=== PATIENT | male | born 1935 | race Caucasian/White ===

== ENCOUNTER 2017-04-15 06:18 | Day surgery (SDC) | payer MEDICARE, OTHER ==
[2017-04-13 14:41] VITALS: BP 148/64
[2017-04-13 14:44] LABS: BASOPHILS % (AUTO) 0.9 % (0.0-5.0); EOSINOPHILS % (AUTO) 5.7 % (0.0-8.0); HEMATOCRIT 43.3 % (42-54); LYMPHOCYTES % (AUTO) 40.3 % (21.0-51.0); MEAN CORPUSCULAR HEMOGLOBIN 31.5 pg (27.0-33.0); MEAN CORPUSCULAR HGB CONC 34.8 g/dL (32.0-36.0); MEAN CORPUSCULAR VOLUME 90.6 fL (79-99); MONOCYTES % (AUTO) 6.3 % (3.0-13.0); NEUTROPHILS % (AUTO) 46.8 % (40.0-77.0); PLATELET COUNT (AUTO) 200 K/uL (130-400); RED BLOOD CELL COUNT(AUTO) 4.78 MIL/uL (4.50-6.20); RED CELL DISTRIBUTION WIDTH 13.5 % (11.0-15.5)
[2017-04-13 14:53] LABS: CREATININE 1.2 mg/dL (0.5-1.5); POTASSIUM 4.3 mmol/L (3.5-5.1)
[~2017-04-15] VITALS: Ht 168.9 cm; Wt 96.1 kg
[2017-04-15] VITALS (16 sets, daily range): BP systolic 94–136; BP diastolic 50–87
[~2017-04-15 06:18] MED LIST: ASPI-1181 PO; CEFTRIAXONE SODIUM 1 GM IVP SCH; DOCU100C19 PO; LOSA1TAB54 PO; METO25TA6 PO; MULT-1258 PO; OMEP20CA10 PO; PARO40TA72 PO; SIMV20TA6 PO; TAMS0.4C32 PO; VIT1CAPS47 PO
[2017-04-15] MEDS ORDERED: GLYCOPYRROLATE 0.2 MG/ML 5 ML VIAL ONE (06:54)
[2017-04-15] MEDS ORDERED: ONDANSETRON HCL 4 MG/2 ML VIAL ONE ×2 (06:54→08:40)
[2017-04-15] MEDS ORDERED: DEXAMETHASONE SOD PHOSPHATE 10MG/ML 1ML VIAL ONE ×2 (06:54→08:39)
[2017-04-15] MEDS ORDERED: SUCCINYLCHOLINE 200MG/10ML SYR ONE ×2 (06:54→08:23)
[2017-04-15] MEDS ORDERED: LIDOCAINE PF 2% 5ML ABBOJECT ONE (06:54)
[2017-04-15] MEDS ORDERED: PROPOFOL 10 MG/ML 20ML VIAL IV ONE (06:55)
[2017-04-15] MEDS ORDERED: MIDAZOLAM HCL 1 MG/ML 2ML VIAL ONE (06:55)
[2017-04-15] MEDS ORDERED: FENTANYL CITRATE PF 50 MCG/1 ML 2ML VIAL ONE (06:55)
[2017-04-15] MEDS ORDERED: LACTATED RINGERS 1000ML 1,000 ML IV ONE (07:38)
[2017-04-15] MEDS: CEFTRIAXONE SODIUM 1 GM ONE ×2 (07:52→08:05)
[2017-04-15] MEDS ORDERED: EPHEDRINE SULFATE 50 MG/ML AMPULE ONE (08:20)
[2017-04-15] MEDS ORDERED: ROCURONIUM BROMIDE 10MG/1ML 5ML VL ONE ×2 (08:23)
[2017-04-15] MEDS ORDERED: LIDOCAINE HCL 2% JELLY 5 ML ONE (08:38)
[2017-04-15] MEDS ORDERED: OPIUM/BELLADONNA ALKALOIDS 1 EACH SUPP.RECT RC ONE (09:15)
[2017-04-15] MEDS ORDERED: PHENAZOPYRIDINE HCL 200 MG TABLET ONE (10:17)
== END 2017-04-15 11:20 | disposition home or self-care (01) ==
LOC: DAH 06:18
PROVIDERS: ATTEND Urology
DX: N40.1 Benign prostatic hyperplasia with lower urinary tract symptoms (principal); R35.0 Frequency of micturition; R35.1 Nocturia; R39.15 Urgency of urination; I10 Essential (primary) hypertension; I25.10 Atherosclerotic heart disease of native coronary artery without angina pectoris; K21.9 Gastro-esophageal reflux disease without esophagitis; E78.00 Pure hypercholesterolemia, unspecified; M19.90 Unspecified osteoarthritis, unspecified site; F32.9 Major depressive disorder, single episode, unspecified; Z98.890 Other specified postprocedural states; Z95.1 Presence of aortocoronary bypass graft
CPT/HCPCS: 36415; 52648; 80048; 85025; 88305; 93005; A4218; A4340; A4354; A4358; A4510; A4600; A4930; J0330 ×2; J0696; J1100 ×2; J2001; J2250; J2405 ×2; J2704; J3010; J3490 ×4; J7030; J7120

== ENCOUNTER → 2017-06-13 | Outpatient (CLI) | payer MEDICARE, OTHER ==
[~2017-06-13] MED LIST changes: -ASPI-1181 PO; -CEFTRIAXONE SODIUM 1 GM IVP SCH
== END | disposition home or self-care (01) ==
LOC: SHCH 10:12
PROVIDERS: ATTEND Internal Medicine Cardiovascular Disease
DX: I25.10 Atherosclerotic heart disease of native coronary artery without angina pectoris (principal)
CPT/HCPCS: 93880

== ENCOUNTER → 2019-03-15 | Outpatient (CLI) | payer OTHER ==
[~2019-03-15] MED LIST changes: +AMLO2.5T4 PO; +ASPI-555 PO; +ATRO10DR OP; -DOCU100C19 PO; +MIRA50TA PO; -MULT-1258 PO; +MULT-1289 PO; -OMEP20CA10 PO; +OMEP20CA12 PO; +PRED5DRO25 OP; +SIMV-43 PO; -SIMV20TA6 PO; -TAMS0.4C32 PO; -VIT1CAPS47 PO
== END | disposition home or self-care (01) ==
LOC: SHCH 15:57
PROVIDERS: ATTEND Internal Medicine Cardiovascular Disease
DX: I35.8 Other nonrheumatic aortic valve disorders (principal); I25.10 Atherosclerotic heart disease of native coronary artery without angina pectoris
CPT/HCPCS: 93306

== ENCOUNTER → 2020-05-15 | Outpatient (CLI) | payer MEDICARE, OTHER ==
[~2020-05-15] MED LIST changes: -ASPI-555 PO; +ASPI-556 PO
== END | disposition home or self-care (01) ==
LOC: SHCH 10:15
PROVIDERS: ATTEND Internal Medicine Cardiovascular Disease
DX: I73.9 Peripheral vascular disease, unspecified (principal); I87.2 Venous insufficiency (chronic) (peripheral)
CPT/HCPCS: 93925; 93970

== ENCOUNTER → 2021-04-06 | Outpatient (CLI) | payer MEDICARE, OTHER ==
[~2021-04-06] MED LIST changes: +REGADENOSON 0.4 MG/5 ML PF SYG IVP SCH
== END | disposition home or self-care (01) ==
LOC: SHCH 09:06
PROVIDERS: ATTEND Internal Medicine Cardiovascular Disease
DX: I11.0 Hypertensive heart disease with heart failure (principal); I50.32 Chronic diastolic (congestive) heart failure
CPT/HCPCS: 78452; 93017; 96374; A9500 ×2; J2785

== ENCOUNTER → 2021-11-17 | Outpatient (CLI) | payer OTHER ==
[~2021-11-17] MED LIST changes: -REGADENOSON 0.4 MG/5 ML PF SYG IVP SCH
[2021-11-17 12:30] LABS: BASOPHILS % (AUTO) 0.6 % (0.0-5.0); EOSINOPHILS % (AUTO) 2.4 % (0.0-8.0); HEMATOCRIT 37.2 % (42-54); LYMPHOCYTES % (AUTO) 37.4 % (21.0-51.0); MEAN CORPUSCULAR HEMOGLOBIN 28.7 pg (27.0-33.0); MEAN CORPUSCULAR HGB CONC 32.8 g/dL (32.0-36.0); MEAN CORPUSCULAR VOLUME 87.5 fL (79-99); MONOCYTES % (AUTO) 6.7 % (3.0-13.0); NEUTROPHILS % (AUTO) 51.9 % (40.0-77.0); PLATELET COUNT (AUTO) 184 K/uL (130-400); RED BLOOD CELL COUNT(AUTO) 4.25 MIL/uL (4.50-6.20); RED CELL DISTRIBUTION WIDTH 14.9 % (11.0-15.5); WHITE BLOOD COUNT (AUTO) 7.9 K/uL (4.8-10.8)
[2021-11-17 12:56] LABS: MAGNESIUM 1.5 mg/dL (1.80-2.40); T4 (THYROXINE) 7.6 ug/dL (4.7-13.3); THYROID STIMULATING HORMONE 2.92 uIU/mL (0.36-3.74)
== END | disposition home or self-care (01) ==
LOC: LAB 11:42
PROVIDERS: ATTEND Internal Medicine Cardiovascular Disease
DX: I25.10 Atherosclerotic heart disease of native coronary artery without angina pectoris (principal); N18.30 Chronic kidney disease, stage 3 unspecified; R53.1 Weakness
CPT/HCPCS: 36415; 80061; 83735; 84436; 84443; 84479; 85025

== ENCOUNTER → 2022-06-23 | Outpatient (CLI) | payer OTHER | END | disposition home or self-care (01) | LOC: SHCH 12:53 | PROVIDERS: ATTEND Internal Medicine Cardiovascular Disease | DX: R60.9 Edema, unspecified (principal) | CPT/HCPCS: 93970 ==